=== PATIENT | female | born 1985 | race Caucasian/White ===

== ENCOUNTER 2017-03-22 13:39 | Inpatient (IN) | payer MEDICAID ==
[2017-03-22] MEDS ORDERED: RINGERS SOLUTION,LACTATED 1,000 ML IV ONE (14:11)
[2017-03-22] MEDS ORDERED: PENICILLIN G POTASSIUM 5,000,000 UNIT in DEXTROSE 5%-WATER 100 ML IV ONE (14:11)
[2017-03-22 14:31] LABS: APPEARANCE,URINE SLIGHTLY-CLOUDY; BILIRUBIN,URINE NEGATIVE (NEGATIVE); GLUCOSE, URINE NEGATIVE (NEGATIVE); KETONES,URINE 80 mg/dL (NEGATIVE); LEUKOCYTE ESTERASE,URINE TRACE (NEGATIVE); NITRITE,URINE NEGATIVE (NEGATIVE); PROTEIN,URINE 100 mg/dL (NEGATIVE); URINE SPECIFIC GRAVITY 1.032; UROBILINOGEN,URINE NEGATIVE mg/dL (<2.0)
[2017-03-22] MEDS ORDERED: PENICILLIN G-K 5 MILLION UNIT VIAL ONE ×3 (14:39→22:51)
[2017-03-22 14:59] LABS: URINE BARBITURATES SCREEN NEGATIVE; URINE METHADONE SCREEN NEGATIVE; URINE OPIATES LOW NEGATIVE; URINE PHENCYCLIDINE SCREEN NEGATIVE
[2017-03-22 15:11] LABS: ABSOLUTE MONOCYTES (AUTO) 0.6 10^3/uL (0.1-1.4); ABSOLUTE NEUT (AUTO) 16.3 10^3/uL (1.7-8.2); BASOPHILS % (AUTO) 0.3 % (0-2); HEMATOCRIT 30.4 % (36.0-47.0); HGB HCT DIFFERENCE -0.4; LYMPHOCYTES % (AUTO) 5.6 % (13-45); MEAN CORPUSCULAR HEMOGLOBIN 25.2 pg (27.0-33.4); MEAN CORPUSCULAR HGB CONC 32.8 g/dL (32.0-36.0); MEAN CORPUSCULAR VOLUME 77 fl (80-97); MONOCYTES % (AUTO) 3.2 % (3-13); RED BLOOD COUNT 3.96 10^6/uL (3.72-5.28); RED CELL DISTRIBUTION WIDTH 16.3 % (11.5-14.0); SEGMENTED NEUTROPHILS % (AUTO) 90.9 % (42-78); WHITE BLOOD COUNT 17.9 10^3/uL (4.0-10.5)
[2017-03-22] MEDS ORDERED: ACETAMINOPHEN 100 ML IV ONE (15:43)
[2017-03-22] MEDS: RINGERS SOLUTION,LACTATED 1,000 ML IV PRN ×4 (15:49→22:41)
[2017-03-22] MEDS ORDERED: LIDOCAINE 1% INJ-PF (10 MG/ML) 30 ML SDV ONE ×2 (17:24)
[2017-03-22] MEDS ORDERED: OXYTOCIN/NORMAL SALINE 20 UNIT/1,000 ML RTUINJ ONE ×2 (17:24)
[2017-03-22] MEDS ORDERED: MISOPROSTOL 0.2 MG TABLET ONE ×2 (17:24)
[2017-03-22] MEDS: PENICILLIN G POTASSIUM 2,500,000 UNIT in DEXTROSE 5%-WATER 50 ML IV SCH ×2 (18:55→22:58)
[2017-03-22] MEDS ORDERED: BUPIVACAINE HCL 0.25 % INJ/PF (2.5 MG/1 ML) 30 ML VIAL ONE (20:34)
[2017-03-22] MEDS ORDERED: PHENYLEPHRINE HCL INJ/PF 10 MG/1 ML SDV ONE (20:34)
[2017-03-22] MEDS ORDERED: EPHEDRINE SULFATE INJ 50 MG/1 ML AMPULE ONE (20:34)
[2017-03-22] MEDS ORDERED: FENTANYL/BUPIVACAINE/NS/PF 200 MCG/100 ML RTUINJ EPI ONE (20:34)
[2017-03-22] MEDS ORDERED: FENTANYL CITRATE INJ/PF 100 MCG/2 ML AMPUL ONE (20:34)
[2017-03-22 22:06] LABS: CHLAM PCR NOT DETECTED (NOT DETECT)
[2017-03-22] MEDS ORDERED: OXYTOCIN/NORMAL SALINE 1,000 ML IV PRN (22:30)
[2017-03-23] MEDS ORDERED: PENICILLIN G-K 5 MILLION UNIT VIAL ONE (02:42)
[2017-03-23] MEDS: PENICILLIN G POTASSIUM 2,500,000 UNIT in DEXTROSE 5%-WATER 50 ML IV SCH (02:50)
[2017-03-23] MEDS: RINGERS SOLUTION,LACTATED 1,000 ML IV PRN (03:24)
[2017-03-23] MEDS ORDERED: DIPH/PERTUSS(ACELL)/TETANUS VAC/PF 0.5 ML SYR (>=10YO) IM PRN (05:16)
[2017-03-23] MEDS ORDERED: DIBUCAINE 1% OINTMENT 28 GM TP PRN (05:16)
[2017-03-23] MEDS ORDERED: BENZOCAINE/MENTHOL AEROSOL SPRAY 56 ML TOP PRN (05:16)
[2017-03-23] MEDS ORDERED: ACETAMINOPHEN WITH CODEINE #3 TABLET PO PRN (05:16)
[2017-03-23] MEDS ORDERED: MEASLES,MUMPS&RUBELLA VACC/PF 0.5 ML VIAL SUBCUT PRN (05:16)
[2017-03-23] MEDS ORDERED: OXYTOCIN/NORMAL SALINE 20 UNIT/1,000 ML RTUINJ IV PRN (05:16)
[2017-03-23] MEDS ORDERED: ZOLPIDEM TARTRATE 5 MG TABLET PO PRN (05:16)
[2017-03-23] MEDS: IBUPROFEN 800 MG TABLET PO SCH ×3 (06:17→21:33)
[2017-03-23] MEDS ORDERED: IBUPROFEN 800 MG TABLET ONE (06:19)
--- NOTE | 2017-03-23 06:50 | Delivery Summary ---
Del Sum A-C Datetime Report Generated by CPN: 03/23/2017 06:50 DELIVERY PERSONNEL DELIVERY PERSONNEL: [phone] Delivery Doctor:: Zehra Schneider MD Labor and Delivery Nurse:: Beatrice oMura RNconfiguration release manager Nurse:: Marisol Ovalle RN Nursery Nurse:: Beatrice Nickerson RN Nursery Nurse:: Giovana Solorio RN Cane Cutter/MUSIC THERAPIST [employer]: Gloria Jansen CNA MATERNAL INFORMATION Delivery Anesthesia: Epidural Medications After Delivery: Pitocin Drip 20 Units/1000ml NSS; Other-Please Comment Meds After Delivery Comment: Cytotec 1000 mcg PA Estimated Blood Loss (ml): 300 Maternal Complications: None LABOR SUMMARY EDC: 03/27/2017 00:00 No. Babies in Womb: 1 Attempted: No Labor Anesthesia: Epidural LABOR INFORMATION Reason for Induction: Premature Rupture of Membranes Onset of Labor: 03/22/2017 02:30 Complete Dilatation: 03/23/2017 04:26 Oxytocin: Augmentation Group B Beta Strep: unknown Antibiotics # of Doses: 4 Antibiotics Time of Last Dose: 0250 Steroids Given: None Reason Steroids Not Administered: Not Applicable MEMBRANES Membranes Rupture Method: Spontaneous Rupture of Membranes: 03/22/2017 02:30 Length of Rupture (hr): 26.47 Amniotic Fluid Color: Clear STAGES OF LABOR Stage 1 hr: 25 Stage 1 min: 56 Stage 2 hr: 0 Stage 2 min: 32 Stage 3 hr: 0 Stage 3 min: 5 Total Time in Labor hr: 26 Total Time in Labor min: 33 VAGINAL DELIVERY Episiotomy: None Laceration Extension: First Degree Laceration Type: Vaginal Laceration Repair: Yes Sharps Count Correct: N/A CSECTION DELIVERY Primary Indication: N/A Secondary Indication: N/A CSection Incidence: N/A Labor: N/A Elective: N/A CSection Incision: N/A BABY A INFORMATION Infant Delivery Date/Time: 03/23/2017 04:58 Method of Delivery: Vaginal Born in Route : No : N/A Forceps: N/A Vacuum Extraction: N/A Shoulder Dystocia : No PRESENTATION/POSITION BABY A Presentation: Cephalic Cephalic Presentation: Vertex Breech Presentation: N/A PLACENTA INFORMATION BABY A Placenta Delivery Time : 03/23/2017 05:03 Placenta Method of Delivery: Spontaneous Placenta Status: Delivered SCORES BABY A Heart Rate 1 min: >100 bpm Resp Effort 1 min: Good Cry Reflex Irritability 1 min: Cough or Sneeze or Pulls Away Muscle Tone 1 min: Active Motion Color 1 min: Blue/Pale Resuscitation Effort 1 min: N/A SCORE 1 MIN: 8 Heart Rate 5 min: >100 bpm Resp Effort 5 min: Good Cry Reflex Irritability 5 min: Cough or Sneeze or Pulls Away Muscle Tone 5 min: Active Motion Color 5 min: Body [place], Extremities Blue Resuscitation Effort 5 min: N/A SCORE 5 MIN: 9 INFANT INFORMATION BABY A Gestational Age at Delivery: 39.3 Gestational Status: Full Term- 39- 40.6 Weeks Outcome : Liveborn Condition : Stable Sex: Male IDENTIFICATION BABY A Infant Verification Date/Time: 03/23/2017 05:11 ID Band Number: [id number] Mother's Name Verified: Yes RN Verifying : Raegan Ovalle KLAUS Additional Verifying Personnel: Susie Biggs RN WEIGHT/LENGTH BABY A Birthweight (gm): 4150 Infant Weight (lb): 9 Infant Weight (oz): 2 Length (in): 21.50 Length (cm): 54.61 CORD INFORMATION BABY A No. Cord Vessels: 3 Nuchal Cord : N/A Cord Blood Taken: Yes-For Eval (Mom's Blood Type - or O+) ASSESSMENT BABY A Skin to Skin: Yes BABY B INFORMATION : N/A SIGNATURES Signature: with User ID: [email or web address]
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
[2017-03-23] MEDS: SENNOSIDES/DOCUSATE 8.6-50 MG 1 EACH TABLET PO SCH (10:14)
[2017-03-23] MEDS: PRENATAL VITAMIN W-O CA NO5/FE FUMARATE/FA CAPSULE PO SCH (10:14)
[2017-03-23] MEDS: FERROUS SULFATE 325 MG TABLET PO SCH ×2 (10:14→17:29)
[2017-03-23] MEDS: DOCUSATE SODIUM 100 MG CAPSULE PO SCH ×2 (10:15→17:29)
[2017-03-23] MEDS: ACETAMINOPHEN WITH CODEINE #3 TABLET PO PRN (19:26)
[2017-03-24] MEDS: IBUPROFEN 800 MG TABLET PO SCH ×3 (05:07→21:11)
[2017-03-24 07:49] LABS: HEMATOCRIT 31.1 % (36.0-47.0); HGB HCT DIFFERENCE -1.1; MEAN CORPUSCULAR HEMOGLOBIN 25.1 pg (27.0-33.4); MEAN CORPUSCULAR VOLUME 78 fl (80-97); RED BLOOD COUNT 3.96 10^6/uL (3.72-5.28); RED CELL DISTRIBUTION WIDTH 16.8 % (11.5-14.0); WHITE BLOOD COUNT 12.6 10^3/uL (4.0-10.5)
[2017-03-24] MEDS: DOCUSATE SODIUM 100 MG CAPSULE PO SCH ×2 (09:53→21:11)
[2017-03-24] MEDS: SENNOSIDES/DOCUSATE 8.6-50 MG 1 EACH TABLET PO SCH (09:53)
[2017-03-24] MEDS: FERROUS SULFATE 325 MG TABLET PO SCH ×2 (09:53→21:11)
[2017-03-24] MEDS: PRENATAL VITAMIN W-O CA NO5/FE FUMARATE/FA CAPSULE PO SCH (09:54)
[2017-03-24] MEDS: ACETAMINOPHEN WITH CODEINE #3 TABLET PO PRN (11:11)
--- NOTE | 2017-03-24 11:40 | PDOC PROGRESS REPORT ---
Subjective-OB Subjective: Post Delivery Day: 1 32 year old. Denies any needs at this time, states lochia is stable, voiding without difficulty, pain well controlled. Physical Exam (OB) Vital Signs: Temp Pulse Resp BP Pulse Ox 98.4 F 94 16 108/75 100 03/24/17 07:32 03/24/17 07:32 03/24/17 07:32 03/24/17 07:32 03/24/17 07:32 Intake & Output 03/23/17 03/24/17 03/25/17 06:59 06:59 06:59 Intake Total 360 Balance 360 Weight 119.5 kg - PIH/Pre-Eclampsia Clonus: Negative - Lochia Lochia Amount: Scant < 10 ml Lochia Color: Rubra/Red - Abdomen Description: Soft, Flat Hernia Present: No Fundal Description: Firm, Midline Fundal Height: u/u - u/2 Objective-Diagnostic Laboratory: 03/24/17 07:20 03/24/17 07:20 WBC 12.6 H RBC 3.96 Hgb 10.0 L Hct 31.1 L MCV 78 L MCH 25.1 L MCHC 32.0 RDW 16.8 H Plt Count 202 Assessment and Plan(PN) - Assessment and Plan (1) Vaginal delivery Is this a current diagnosis for this admission?: YesPlan: routine pp care (2) Acute blood loss anemia Is this a current diagnosis for this admission?: YesPlan: ferrous sulfate - Time Spent with Patient Time with patient: Less than 15 minutes Critical Time spent with patient: Less than 15 minutes Medications reviewed and adjusted accordingly: Yes - Disposition Anticipated Discharge: Home Within: within 24 hours
[2017-03-25] MEDS: IBUPROFEN 800 MG TABLET PO SCH ×2 (05:13→14:42)
[2017-03-25 08:03] VITALS: BP 120/72
--- NOTE | 2017-03-25 11:28 | PDOC DISCHARGE SUMMARY ---
Final Diagnosis Discharge Date: 03/25/17 - Final Diagnosis (1) Vaginal delivery Is this a current diagnosis for this admission?: Yes (2) Acute blood loss anemia Is this a current diagnosis for this admission?: Yes Discharge Data - Discharge Medication Home Medications: Docusate Sodium [Colace 100 mg Capsule] 100 mg PO BID #60 capsule 03/25/17 Ferrous Sulfate [Feosol 325 mg Tablet] 325 mg PO BID #60 tablet 03/25/17 Ibuprofen [Motrin 800 mg Tablet] 800 mg PO Q8HP PRN #60 tablet 03/25/17 Reason(s) for Admission: Onset of Labor Procedures: Ultrasound Intrapartum Procedure(s): Spontaneous Vaginal Delivery Complication(s): Laceration-Vaginal Laceration-Degree: 1st - Diagnosis Test Laboratory: Temp Pulse Resp BP Pulse Ox 98.0 F 70 20 120/72 100 03/25/17 07:41 03/25/17 07:41 03/25/17 07:41 03/25/17 07:41 03/25/17 07:41 03/22/17 03/22/17 03/24/17 13:52 15:00 07:20 RBC 3.96 3.96 Hgb 10.0 L 10.0 L Hct 30.4 L 31.1 L Urine Opiates Screen NEGATIVE - Discharge information/Instructions Discharge Activity: Activity As Tolerated, Balance Activity w/Rest, No Lifting Over 10 Pounds, No Lifting/Push/Pulling, Pelvic Rest, Slowly Increase Activity Discharge Diet: Regular Disposition: HOME, SELF-CARE Follow up with: [facility] in: 4, Weeks
[2017-03-25] MEDS: FERROUS SULFATE 325 MG TABLET PO SCH ×2 (11:50→17:43)
[2017-03-25] MEDS: DOCUSATE SODIUM 100 MG CAPSULE PO SCH ×2 (11:51→17:43)
[2017-03-25] MEDS: SENNOSIDES/DOCUSATE 8.6-50 MG 1 EACH TABLET PO SCH (11:51)
[2017-03-25] MEDS: PRENATAL VITAMIN W-O CA NO5/FE FUMARATE/FA CAPSULE PO SCH (11:51)
== END 2017-03-25 17:51 | disposition home or self-care (01) | DRG 775 ==
LOC: LC 13:39 → LR 14:31 → 2S 03-23 07:45
PROVIDERS: ADMIT Obstetrics & Gynecology; ATTEND Obstetrics & Gynecology
PROC: 4A1HXCZ Monitoring of Products of Conception, Cardiac Rate, External Approach (ICD-10-PCS; 2017-03-22)
PROC: 10E0XZZ Delivery of Products of Conception, External Approach (ICD-10-PCS; principal; 2017-03-23)
PROC: 0HQ9XZZ Repair Perineum Skin, External Approach (ICD-10-PCS; 2017-03-23)
DX: O42.02 Full-term premature rupture of membranes, onset of labor within 24 hours of rupture (principal); D62 Acute posthemorrhagic anemia; O99.02 Anemia complicating childbirth; O70.0 First degree perineal laceration during delivery; O99.344 Other mental disorders complicating childbirth; F32.9 Major depressive disorder, single episode, unspecified; Z91.030 Bee allergy status; Z3A.39 39 weeks gestation of pregnancy; Z37.0 Single live birth
CPT/HCPCS: 36415; 80307; 81005; 85025; 85027; 86592; 86850; 86900; 86901; 87491; 87591; 94760; J0131; J2370; J2540; J2590; J3010; J3490

== ENCOUNTER 2018-11-25 19:20 | Emergency (ER) | payer MEDICAID ==
[2018-11-25] MEDS ORDERED: RINGERS SOLUTION,LACTATED 1,000 ML IV ONE (20:05)
--- NOTE | 2018-11-25 20:05 | ER Document Report ---
ED Medical Screen (RME) - General Chief Complaint: Nausea/Vomiting Stated Complaint: WEAKNESS Time Seen by Provider: 11/25/18 20:02 Primary Care Provider: JG GREEN MD [Primary Care Provider] - Follow up as needed Notes: Patient is a 33-year-old female that presents to the emergency department for chief complaint of nausea and vomiting. Patient is approximate 9 weeks , has history of hyperemesis gravidarum, and has been having bad last 2 days with significant vomiting, decreased oral intake, and feels rather dehydrate. ROS: Other than noted above, the 12 point review of systems was reviewed with the patient and were negative, all pertinent findings are included in the HPI. PHYSICAL EXAMINATION: Vital signs reviewed. GENERAL: Patient appears anxious on exam, complaining of nausea HEAD: Atraumatic, normocephalic. EYES: Pupils equal round extraocular movements intact, conjunctiva are normal. ENT: Nares patent NECK: Normal range of motion CV: Heart regular rate and rhythm LUNGS: No respiratory distress Musculoskeletal: Normal range of motion NEUROLOGICAL: Normal speech PSYCH: Anxious on exam MDM: Patient seen and examined for rapid initial assessment. Vital signs reviewed. A comprehensive ED assessment and evaluation of the patient, analysis of test results and completion of the medical decision making process will be conducted by additional ED providers. *Note is created using voice recognition software and may contain spelling, syntax or grammatical errors. TRAVEL OUTSIDE OF THE [place] IN LAST 30 DAYS: No - Related Data Allergies/Adverse Reactions: bee venom protein (honey bee) Allergy (Verified 11/25/18 19:22) Past Medical History - Social History Chew tobacco use (# tins/day): No Frequency of alcohol use: None Drug Abuse: None Renal/ Medical History: Denies: Hx Peritoneal Dialysis Physical Exam - Vital signs Vitals: Temp Pulse Resp BP Pulse Ox 98.8 F 103 H 16 130/80 H 99 11/25/18 19:45 11/25/18 19:45 11/25/18 19:45 11/25/18 19:45 11/25/18 19:45 Course - Vital Signs Vital signs: Temp Pulse Resp BP Pulse Ox 98.8 F 103 H 16 130/80 H 99 11/25/18 19:45 11/25/18 19:45 11/25/18 19:45 11/25/18 19:45 11/25/18 19:45 Doctor's Discharge - Discharge Referrals: JG GREEN MD [Primary Care Provider] - Follow up as needed
[2018-11-25] MEDS ORDERED: NORMAL SALINE 1000 ML 1,000 ML IV ONE ×2 (20:06→22:10)
[2018-11-25] MEDS ORDERED: METOCLOPRAMIDE HCL INJ/PF 10 MG/2 ML SDV IV ONE (20:06)
[2018-11-25 21:21] LABS: APPEARANCE,URINE SLIGHTLY-CLOUDY; BILIRUBIN,URINE NEGATIVE (NEGATIVE); GLUCOSE, URINE NEGATIVE (NEGATIVE); KETONES,URINE NEGATIVE (NEGATIVE); LEUKOCYTE ESTERASE,URINE NEGATIVE (NEGATIVE); NITRITE,URINE NEGATIVE (NEGATIVE); PROTEIN,URINE NEGATIVE (NEGATIVE); URINE SPECIFIC GRAVITY 1.031
[2018-11-25 21:23] LABS: COLOR,URINE YELLOW
[2018-11-25 22:30] LABS: ABSOLUTE BASOPHILS # (AUTO) 0.1 10^3/uL (0.0-0.2); ABSOLUTE EOSINOPHILS # (AUTO) 0.1 10^3/uL (0.0-0.6); ABSOLUTE LYMPHOCYTES (AUTO) 2.4 10^3/uL (0.5-4.7); ABSOLUTE MONOCYTES (AUTO) 0.6 10^3/uL (0.1-1.4); ABSOLUTE NEUT (AUTO) 7.1 10^3/uL (1.7-8.2); BASOPHILS % (AUTO) 0.7 % (0-2); EOSINOPHILS % (AUTO) 0.8 % (0-6); HEMATOCRIT 41.4 % (36.0-47.0); HEMOGLOBIN 14.1 g/dL (12.0-15.5); LYMPHOCYTES % (AUTO) 23.2 % (13-45); MEAN CORPUSCULAR HEMOGLOBIN 27.8 pg (27.0-33.4); MEAN CORPUSCULAR HGB CONC 34.1 g/dL (32.0-36.0); MEAN CORPUSCULAR VOLUME 82 fl (80-97); MONOCYTES % (AUTO) 5.5 % (3-13); PLATELET COUNT 284 10^3/uL (150-450); RED BLOOD COUNT 5.07 10^6/uL (3.72-5.28); RED CELL DISTRIBUTION WIDTH 14.6 % (11.5-14.0); SEGMENTED NEUTROPHILS % (AUTO) 69.8 % (42-78); TOTAL CELLS COUNTED % (AUTO) 100 %; WHITE BLOOD COUNT 10.1 10^3/uL (4.0-10.5)
[2018-11-25 22:50] LABS: ALANINE AMINOTRANSFERASE 15 U/L (9-52); ALBUMIN 4.5 g/dL (3.5-5.0); ALKALINE PHOSPHATASE 61 U/L (38-126); ANION GAP 11 (5-19); ASPARTATE AMINO TRANSFERASE 18 U/L (14-36); BILIRUBIN,DIRECT 0.3 mg/dL (0.0-0.4); BILIRUBIN,TOTAL 1.1 mg/dL (0.2-1.3); BLOOD UREA NITROGEN 12 mg/dL (7-20); CALCIUM 9.8 mg/dL (8.4-10.2); CARBON DIOXIDE 27 mmol/L (22-30); CHLORIDE 99 mmol/L (98-107); GLUCOSE 90 mg/dL (75-110); LIPASE 46.6 U/L (23-300); POTASSIUM 4.2 mmol/L (3.6-5.0); SODIUM 136.9 mmol/L (137-145); TOTAL PROTEIN 8.2 g/dL (6.3-8.2)
--- NOTE | 2018-11-25 23:20 | ER Document Report ---
ED GI/ - General Chief Complaint: Nausea/Vomiting Stated Complaint: WEAKNESS Time Seen by Provider: 11/25/18 20:02 Primary Care Provider: JG GREEN MD [Primary Care Provider] - Follow up as needed Mode of Arrival: Ambulatory Information source: Patient Notes: Patient says she is 9 weeks and she has been having intermittent nausea and vomiting for the past 2 weeks. Her TANK CALIBRATOR doctor is Dr. Green. Patient denies any blood in the vomitus. She also denies vaginal bleeding or vaginal discharge. Patient also denies abdominal pain. She said she has had hyperemesis gravidarum in her previous and the symptoms was the same symptoms she had then. TRAVEL OUTSIDE OF THE [place] IN LAST 30 DAYS: No - HPI Patient complains to provider of: , Vomiting. No: Abdominal pain, Diarrhea, Dysuria, Flank pain, Vaginal discharge, Vaginal pain Onset: Other - .2 weeks ago Timing/Duration: Gradual, Intermittent Quality of pain: No pain Pain Level: Denies Context: Vaginal bleeding (Compared to normal period): None OB ultrasound done: No vitamins taken: No Sexual history: Active Associated symptoms: Nausea, Vomiting. denies: Blood in emesis, Diarrhea, Vaginal discharge Exacerbated by: Denies Relieved by: Denies Similar symptoms previously: Yes Recently seen / treated by doctor: No - Related Data Allergies/Adverse Reactions: bee venom protein (honey bee) Allergy (Verified 11/25/18 19:22) Past Medical History - Social History Smoking Status: Never Smoker Chew tobacco use (# tins/day): No Frequency of alcohol use: None Drug Abuse: None Family History: Reviewed & Not Pertinent Patient has suicidal ideation: No Patient has homicidal ideation: No Renal/ Medical History: Denies: Hx Peritoneal Dialysis Review of Systems - Review of Systems Constitutional: No symptoms reported EENT: No symptoms reported Cardiovascular: No symptoms reported Respiratory: No symptoms reported Gastrointestinal: Nausea, Vomiting. denies: Abdominal pain, Diarrhea Genitourinary: No symptoms reported Female Genitourinary: No symptoms reported Musculoskeletal: No symptoms reported Skin: No symptoms reported Hematologic/Lymphatic: No symptoms reported Neurological/Psychological: No symptoms reported -: Yes All other systems reviewed and negative Physical Exam - Vital signs Vitals: Temp Pulse Resp BP Pulse Ox 98.8 F 103 H 16 130/80 H 99 11/25/18 19:45 11/25/18 19:45 11/25/18 19:45 11/25/18 19:45 11/25/18 19:45 Interpretation: Normal - General General appearance: Appears well, Alert - HEENT Head: Normocephalic, Atraumatic Eyes: Normal Pupils: PERRL - Respiratory Respiratory status: No respiratory distress Chest status: Nontender Breath sounds: Normal Chest palpation: Normal - Cardiovascular Rhythm: Regular Heart sounds: Normal auscultation Murmur: No - Abdominal Inspection: Normal Distension: No distension Bowel sounds: Normal Tenderness: Nontender Organomegaly: No organomegaly - Back Back: Normal, Nontender - Extremities General upper extremity: Normal inspection, Nontender, Normal color, Normal ROM, Normal temperature General lower extremity: Normal inspection, Nontender, Normal color, Normal ROM, Normal temperature, Normal weight bearing. No: Erich's sign - Neurological Neuro grossly intact: Yes Cognition: Normal Orientation: AAOx4 [place] Coma Scale Eye Opening: Spontaneous Rachael Coma Scale Verbal: Oriented Rachael Coma Scale Motor: Obeys Commands [place] Coma Scale Total: 15 Speech: Normal Motor strength normal: LUE, RUE, LLE, RLE Sensory: Normal - Psychological Associated symptoms: Normal affect, Normal mood - Skin Skin Temperature: Warm Skin Moisture: Dry Skin Color: Normal Course - Re-evaluation Re-evalutation: 11/26/18 00:39 Patient is says she is feeling better after receiving treatment in the emergency room and she is ready to be discharged. She will follow-up with her TANK CALIBRATOR doctor tomorrow morning. - Vital Signs Vital signs: Temp Pulse Resp BP Pulse Ox 98.6 F 76 14 103/56 L 100 11/26/18 01:08 11/26/18 01:08 11/26/18 01:08 11/26/18 01:08 11/26/18 01:08 - Laboratory Result Diagrams: 11/25/18 20:50 11/25/18 20:50 Laboratory results interpreted by me: 11/25/18 11/25/18 11/25/18 20:45 20:50 20:50 RDW 14.6 H Sodium 136.9 L Beta HCG, Quant 23049.00 H Urine Urobilinogen 2.0 H Discharge - Discharge Clinical Impression: Hyperemesis gravidarum Condition: Stable Disposition: HOME, SELF-CARE Instructions: Hyperemesis Gravidarum ([facility]) Additional Instructions: Please follow-up with your TANK CALIBRATOR Dr. Green tomorrow morning. Return to the emergency room if your condition worsens. Prescriptions: Promethazine HCl [Phenergan 25 mg Supp.rect] 1 supp LA Q6H #12 supp.rect Referrals: JG GREEN MD [Primary Care Provider] - Follow up as needed
[2018-11-26 01:10] VITALS: BP 103/56
== END 2018-11-26 01:15 | disposition home or self-care (01) ==
LOC: ER 19:20
DX: O21.0 Mild hyperemesis gravidarum (principal); Z3A.09 9 weeks gestation of pregnancy; Z91.030 Bee allergy status
CPT/HCPCS: 99284; 96361; 96374; 36415; 84702; 83690; 85025; 80053; 81001; J2765; J7030; J7120

== ENCOUNTER 2018-12-25 15:14 | Observation (INO) | payer MEDICAID ==
[2018-12-25] MEDS ORDERED: PROMETHAZINE HCL INJ 25 MG/1 ML VIAL ONE (16:07)
[2018-12-25] MEDS: DEXTROSE 5%-LACTATED RINGERS 1,000 ML IV PRN (17:36)
[2018-12-25 17:48] LABS: ALANINE AMINOTRANSFERASE 15 U/L (9-52); ALBUMIN 4.1 g/dL (3.5-5.0); ALKALINE PHOSPHATASE 52 U/L (38-126); ANION GAP 13 (5-19); ASPARTATE AMINO TRANSFERASE 16 U/L (14-36); BILIRUBIN,DIRECT 0.2 mg/dL (0.0-0.4); BILIRUBIN,TOTAL 0.8 mg/dL (0.2-1.3); BLOOD UREA NITROGEN 12 mg/dL (7-20); CALCIUM 9.5 mg/dL (8.4-10.2); CARBON DIOXIDE 22 mmol/L (22-30); CHLORIDE 103 mmol/L (98-107); GLUCOSE 72 mg/dL (75-110); POTASSIUM 4.1 mmol/L (3.6-5.0); SODIUM 137.7 mmol/L (137-145); TOTAL PROTEIN 7.3 g/dL (6.3-8.2)
[2018-12-25] MEDS ORDERED: NORMAL SALINE 1000 ML 1,000 ML with POTASSIUM CHLORIDE 20 MEQ, MAGNESIUM SULFATE 8 MEQ,... IV SCH ×5 (18:00)
[2018-12-25] MEDS ORDERED: ONDANSETRON HCL INJ/PF 4 MG/2 ML SDV IV PRN (21:07)
[2018-12-25] MEDS ORDERED: PROMETHAZINE HCL INJ 25 MG/1 ML VIAL IV PRN (21:08)
[2018-12-26] MEDS: DEXTROSE 5%-LACTATED RINGERS 1,000 ML IV PRN ×4 (03:33→22:54)
[2018-12-26] MEDS: ACETAMINOPHEN 325 MG TABLET PO PRN ×2 (03:36→11:24)
[2018-12-26] MEDS: FAMOTIDINE INJ/PF 20 MG/2 ML SDV IV SCH ×2 (06:08→18:16)
--- NOTE | 2018-12-26 10:03 | PDOC PROGRESS REPORT ---
Subjective Progress Note for:: 12/26/18 Subjective:: Patient notes that she is still nauseated and does not want to eat. Pt states she is dry heaving. Pt admits to have a few small bites and keeping it down but states feels very nauseated regardless. Pt denies any vaginal bleeding but admits to small cramping. Patient has only urinated twice since being admitted yesterday evening. Reason For Visit: HYPEREMESIS Physical Exam - Physical Exam Vital Signs: Temp Pulse Resp BP Pulse Ox 98.3 F 75 16 103/60 99 12/26/18 08:06 12/26/18 08:06 12/26/18 08:06 12/26/18 08:06 12/26/18 08:06 Intake & Output 12/25/18 12/26/18 12/27/18 06:59 06:59 06:59 Intake Total 2022 Output Total 300 Balance 1723 Weight 98.7 kg General appearance: PRESENT: no acute distress, cooperative, morbidly obese Head exam: PRESENT: atraumatic, normocephalic Eye exam: PRESENT: EOMI Mouth exam: PRESENT: moist Respiratory exam: PRESENT: clear to auscultation romario, symmetrical Cardiovascular exam: PRESENT: RRR, +S1, +S2 Pulses: PRESENT: normal dorsalis pedis pul GI/Abdominal exam: PRESENT: normal bowel sounds, soft Rectal exam: PRESENT: deferred Extremities exam: PRESENT: full ROM Musculoskeletal exam: PRESENT: ambulatory, normal inspection Neurological exam: PRESENT: alert, awake, oriented to person, oriented to place, oriented to time, oriented to situation, normal gait Psychiatric exam: PRESENT: normal mood - for being in the hospital and nauseated Skin exam: PRESENT: normal color - Obstetrical Exam External Genitalia: normal Tender: No - Fundal height palpable suprapubicly; Cardiac activity present on u/s 12/26 Result Laboratory Results: 12/25/18 17:13 12/25/18 17:13 Sodium 137.7 Potassium 4.1 Chloride 103 Carbon Dioxide 22 Anion Gap 13 BUN 12 Creatinine 0.49 L Est GFR ( Amer) > 60 Est GFR (Non-Af Amer) > 60 Glucose 72 L Calcium 9.5 Total Bilirubin 0.8 AST 16 ALT 15 Alkaline Phosphatase 52 Total Protein 7.3 Albumin 4.1 Assessment & Plan - Diagnosis (1) Hyperemesis gravidarum Is this a current diagnosis for this admission?: Yes (2) 13 weeks gestation of Is this a current diagnosis for this admission?: Yes - Plan Summary Plan Summary: Will have scheduled zofrant AIs0imn, if does well with this, will give scheduled ODT Will switch IV reglan to scopalamine patch if available
[2018-12-26] MEDS ORDERED: SCOPOLAMINE HYDROBROMIDE 1.5 MG PATCH.TD72 TD ONE (11:00)
[2018-12-26] MEDS: ONDANSETRON HCL INJ/PF 4 MG/2 ML SDV IV SCH ×3 (14:40→22:55)
[2018-12-27] MEDS: ONDANSETRON HCL INJ/PF 4 MG/2 ML SDV IV SCH ×2 (04:23→05:26)
[2018-12-27] MEDS: DEXTROSE 5%-LACTATED RINGERS 1,000 ML IV PRN (04:42)
[2018-12-27] MEDS: FAMOTIDINE INJ/PF 20 MG/2 ML SDV IV SCH (05:23)
--- NOTE | 2018-12-27 09:06 | PDOC DISCHARGE SUMMARY ---
General - Admit/Disc Date/PCP Admission Date/Primary Care Provider: 12/25/18 15:14 JG GREEN MD Discharge Date: 12/27/18 - Additional Information Home Medications: Docusate Sodium [Colace 100 mg Capsule] 100 mg PO BID #60 capsule 03/25/17 Ferrous Sulfate [Feosol 325 mg Tablet] 325 mg PO BID #60 tablet 03/25/17 Ibuprofen [Motrin 800 mg Tablet] 800 mg PO Q8HP PRN #60 tablet 03/25/17 Promethazine HCl [Phenergan 25 mg Supp.rect] 1 supp [place] Q6H #12 supp.rect 11/26/18 History of Present Illness History of Present Illness: NISA WARREN is a 33 year old female She presents with hyperemesis from the office. Physical Exam - Physical Exam Vital Signs: Temp Pulse Resp BP Pulse Ox 98.8 F 93 16 117/68 100 12/27/18 07:25 12/27/18 07:25 12/27/18 07:25 12/27/18 07:25 12/27/18 07:25 Intake & Output 12/26/18 12/27/18 12/28/18 06:59 06:59 06:59 Intake Total 3 4230 Output Total 300 1500 Balance 1723 2730 Weight 98.7 kg 89.6 kg - Obstetrical Exam External Genitalia: normal Result Laboratory Results: 12/25/18 17:13 Impressions: Hyperemesis in now controlled with medications. Plan Discharge Plan: home on zofran today. Followup on
[2018-12-27 10:08] VITALS: BP 141/87
== END 2018-12-27 10:05 | disposition home or self-care (01) ==
LOC: 2S 15:14
PROVIDERS: ADMIT Obstetrics & Gynecology; ATTEND Obstetrics & Gynecology
DX: O21.0 Mild hyperemesis gravidarum (principal); Z3A.13 13 weeks gestation of pregnancy
CPT/HCPCS: 36415; 80053; G0378 ×3; J3490 ×3; J3475; J3480; J2550; J3411; J2405 ×2; J7030; S0028 ×2; G0379; J7121